=== PATIENT | female | born 1995 | race Caucasian/White ===

== ENCOUNTER 2025-08-18 00:06 | Emergency (ER) | payer SELFPAY ==
[~2025-08-18] VITALS: Ht 175.3 cm; Wt 54.0 kg
[2025-08-18 00:17] VITALS: O2SAT 100
[2025-08-18 01:10] VITALS: BP 126/83; PULSE 91; RESP 16; TEMP 36.5; O2SAT 98
== END 2025-08-18 01:15 | disposition home or self-care (01) ==
LOC: ER 00:06
DX: G89.29 Other chronic pain (principal); M54.50 Low back pain, unspecified
CPT/HCPCS: 99283